=== PATIENT | female | born 1990 | race Caucasian/White ===

== ENCOUNTER 2018-07-18 19:21 | Emergency (ER) | payer OTHER ==
[2018-07-18] MEDS ORDERED: IPRATROPIUM/ALBUTEROL SULFATE 3 ML AMPUL.NEB NEB STA (19:39)
[2018-07-18] MEDS ORDERED: methylPREDNISolone SOD SUCC 125 MG/2 ML VIAL IM ONE (20:08)
[2018-07-18] MEDS ORDERED: KETOROLAC TROMETHAMINE 60 MG/2 ML VIAL IM ONE (20:08)
[2018-07-18] MEDS ORDERED: AZITHROMYCIN 250 MG TABLET PO ONE (20:08)
[2018-07-18] MEDS ORDERED: ALBUTEROL SULFATE 2.5 MG/3 ML AMPUL.NEB NEB ONE (20:09)
--- NOTE | 2018-07-18 20:13 | ED Physician Documentation ---
Upper Respiratory Symptoms - HISTORIAN Historian: patient - HPI Stated Complaint: cough Chief Complaint: Cough/ Upper Respiratory Further Comments: yes (28 year old female patient presents with complaint of cough, congestion, wheezing, body aches and fever for the past 2 days. Patient is out of her albuterol nebulizer.) - ROS CONST/EYES: denies: weakness, eye redness, eye itching CVS/RESP: none LYMPH: denies: leg swelling, rash, swollen glands, ankle swelling, other GI/: none NEURO/PSYCH: denies: fainting, dizziness, confusion, anxiety, depression, other MS/SKIN: denies: joint pain, muscle aches, rash, other - PAST HX Lung Disease: asthma Other History: other (ORIF bilateral hips) Surgeries/Procedures: , other (ORIF bilateral hip - S/P trauma) Allergies/Adverse Reactions: Allergies Allergy/AdvReac Type Severity Reaction Status Date / Time Penicillins Allergy Verified 07/18/18 19:47 Home Medications: Ambulatory Orders Medication Instructions Recorded Albuterol Sulfate [Proair HFA] 1 inh IH Q4H PRN #1 hfa.aer.ad 07/18/18 Azithromycin [Zithromax] 250 mg PO DAILY #4 tablet 07/18/18 Loratadine [Allergy Relief] 10 mg PO DAILY #30 tablet 07/18/18 - SOCIAL HX Smoking History: cigarettes - FAMILY HX Family History: denies: none - VITAL SIGNS Vital Signs: Vital Signs Temp Pulse Resp BP Pulse Ox 99.0 F 85 24 158/97 97 07/18/18 19:22 07/18/18 19:22 07/18/18 19:22 07/18/18 19:22 07/18/18 19:22 - REVIEWED ASSESSMENTS Nursing Assessment Reviewed: Yes Vitals Reviewed: Yes ED Results Lab/Radiology - Orders Orders: ED Orders Category Date Time Status INFLUENZA A&B Stat Lab 07/18/18 19:39 Ordered Albuterol Sulfate [Ventolin Hfa] Med 07/18/18 20:38 Discontinued 2 puff IH NOW ONE Albuterol Sulfate [Ventolin] Med 07/18/18 20:09 Discontinued 2.5 mg NEB NOW ONE Azithromycin [Zithromax] Med 07/18/18 20:08 Discontinued 500 mg PO NOW ONE Codeine Phosphate/Guaifenesin [Robitussin AC] Med 07/18/18 20:39 Discontinued 10 ml PO Now ONE Ipratropium/Albuterol Sulfate [Duoneb] Med 07/18/18 19:39 Discontinued 3 ml NEB STAT STA Ketorolac Tromethamine [Toradol] Med 07/18/18 20:08 Discontinued 60 mg IM NOW ONE methylPREDNISolone SOD SUCC [Solu-MEDROL] Med 07/18/18 20:08 Discontinued 125 mg IM NOW ONE Upper Respiratory Symptoms - EXAM General Appearance: moderate distress EENT: eyes nml inspection, lids & conjunct. nml, PERRL, TM erythema (left ), nose nml, airway nml, pharyngeal erythema Respiratory: no resp. distress, no pain on inspiration, speaks full sentences, no pleuritic chest pain, other (expiratory wheezing, productive cough) Abdomen: non-tender, no organomegaly, nml bowel sounds, no distention CVS: reg rate & rhythm, heart sounds normal, equal pulses, no murmur, no gallop, PMI nml, no JVD, no friction rub, 24 Skin: color nml, no rash, warm,dry Extremities: non-tender, normal range of motion, no evidence of injury, no edema, J, [employer] Neuro/Psych: oriented x3, neuro intact, mood/affect nml, CN's nml as tested Discharge Clincal Impression: Cough Asthma exacerbation Qualifiers: Asthma severity: moderate Asthma persistence: persistent Qualified Code(s): J45.41 - Moderate persistent asthma with (acute) exacerbation Prescriptions: Albuterol Sulfate [Proair HFA] 1 inh IH Q4H PRN #1 hfa.aer.ad PRN Reason: Wheezing Azithromycin [Zithromax] 250 mg PO DAILY #4 tablet Loratadine [Allergy Relief] 10 mg PO DAILY #30 tablet Referrals: Primary Doctor,No [Primary Care Provider] - 2 Days Condition: Stable Disposition: 01 HOME, SELF-CARE Decision to Admit: NO Decision Time: 20:49
[2018-07-18] MEDS ORDERED: ALBUTEROL 90MCG/PUFF INHALER IH ONE (20:38)
[2018-07-18] MEDS ORDERED: GUAIFENESIN/CODEINE 10 ML S/F LIQUID DOSE CUP PO ONE (20:39)
[2018-07-18 21:46] VITALS: BP 132/74
== END 2018-07-18 20:55 | disposition home or self-care (01) ==
LOC: ED 19:21
DX: J06.9 Acute upper respiratory infection, unspecified (principal)
CPT/HCPCS: 87400; J1885; J2930; 94640; 96372; 99282; 99283